=== PATIENT | male | born 1980 | race American Indian/Alaskan Native ===

== ENCOUNTER 2018-08-17 11:51 | Emergency (ER) | payer OTHER ==
[2018-08-17 12:01] VITALS: BP 126/77
--- NOTE | 2018-08-17 12:03 | Emergency Department Report ---
Chief Complaint: Neck Pain/Injury Stated Complaint: SORETHROAT Time Seen by Provider: 08/17/18 12:00 - HPI History of Present Illness: This is a 38 y.o. male that presents with sore throat x 2 weeks. - Exam Vital Signs: Vital Signs 08/17/18 12:00 Temperature 98 F Pulse Rate 68 Respiratory 18 Rate Blood Pressure 126/77 O2 Sat by Pulse 100 Oximetry MSE screening note: Focused history and physical exam performed. Due to findings the following was ordered: Rapid strep ACC further evaluation ED Disposition for MSE Condition: Stable
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
== END 2018-08-17 15:02 | disposition home or self-care (01) ==
LOC: ED 11:51
DX: J02.9 Acute pharyngitis, unspecified (principal); S83.92XA Sprain of unspecified site of left knee, initial encounter; F17.200 Nicotine dependence, unspecified, uncomplicated; Z91.041 Radiographic dye allergy status; V89.0XXA Person injured in unspecified motor-vehicle accident, nontraffic, initial encounter; Y93.89 Activity, other specified; Y92.488 Other paved roadways as the place of occurrence of the external cause; Y99.8 Other external cause status
CPT/HCPCS: 87116; 87430; 99283